=== PATIENT | male | born 1980 | race Caucasian/White ===

== ENCOUNTER 2020-05-02 17:02 | Emergency (ER) | payer BC, OTHER ==
--- NOTE | 2020-05-02 17:33 | ERPHSYRPT ---
- History of Present Illness Time Seen by Provider: 05/02/20 17:18 Source: patient Exam Limitations: no limitations Patient Subjective Stated Complaint: Headche Triage Nursing Assessment: Patient ambulated back to ED and transferred self to bed. Patient A+O X3. Patient's skin pink, warm and dry. Patient states he went to the dentist last week and had a fever and was put off of work. Patient states he needs a work note to go back to work. Patient states last week he was fatigued with headache. Patient denies anything going on now. Physician History: 40 years old fairly healthy male presented in the ER for work release note. Patient report he went to dentist 2 weeks ago and spiked a fever, he was put off work for 14 days. He also reports having occasional headaches, abdominal cramps but no vomiting. Denies any fever recently. Patient does not have COVID-19 testing done. Denies sore throat, chest pain palpitations, shortness of breath or cough. Denies any recent sick contact. Allergies/Adverse Reactions: No Known Drug Allergies Allergy (Verified 05/02/20 17:10) Home Medications: No Reportable Medications [No Reported Medications] 05/02/20 [History] Hx Tetanus, Diphtheria Vaccination/Date Given: Yes (7 years ago) Hx Influenza Vaccination/Date Given: No Hx Pneumococcal Vaccination/Date Given: No Immunizations Up to Date: Yes Travel Risk - International Travel Have you traveled outside of the country in past 3 weeks: No - Coronavirus Screening Are you exhibiting any of the following symptoms?: No Close contact with a COVID-19 positive Pt in past 14-21 Days: No - Review of Systems Constitutional: No Symptoms Eyes: No Symptoms Ears, Nose, & Throat: No Symptoms Respiratory: No Symptoms Cardiac: No Symptoms Abdominal/Gastrointestinal: No Symptoms Genitourinary Symptoms: No Symptoms Musculoskeletal: No Symptoms Skin: No Symptoms Neurological: No Symptoms Psychological: No Symptoms Endocrine: No Symptoms Hematologic/Lymphatic: No Symptoms Immunological/Allergic: No Symptoms - Past Medical History Pertinent Past Medical History: No - Past Surgical History Past Surgical History: No - Social History Smoking Status: Current every day smoker How long have you smoked: years Exposure to second hand smoke: No Drug Use: none Patient Lives Alone: No - Nursing Vital Signs Nursing Vital Signs: Initial Vital Signs Temperature 98.3 F 05/02/20 17:11 Pulse Rate 101 H 05/02/20 17:11 Respiratory Rate 18 05/02/20 17:11 Blood Pressure 132/76 05/02/20 17:11 O2 Sat by Pulse Oximetry 98 05/02/20 17:11 Pain Scale Pain Intensity 0 - Physical Exam General Appearance: no apparent distress, alert Eye Exam: PERRL/EOMI, eyes nml inspection Ears, Nose, Throat Exam: normal ENT inspection, TMs normal, pharynx normal Neck Exam: normal inspection, non-tender, supple, full range of motion Respiratory Exam: normal breath sounds, lungs clear Cardiovascular Exam: regular rate/rhythm, normal heart sounds Gastrointestinal/Abdomen Exam: soft, normal bowel sounds, No tenderness Back Exam: normal inspection, normal range of motion Extremity Exam: normal inspection, normal range of motion Neurologic Exam: alert, oriented x 3, cooperative, 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 He is afebrile here. Not in any distress. He still occasionally get headaches and abdominal cramping with fatigue symptoms. I believe he has a viral infection. Patient is advised that he probably needs COVID-19 testing negative before he can go back to work and cannot be released from the ER. I have offered him Covid 19 testing which he refused. 05/02/20 17:32 Counseled pt/family regarding: need for follow-up - Departure Departure Disposition: Home Clinical Impression: Viral syndrome Condition: Stable Critical Care Time: No Referrals: ROJELIO SMITH [Primary Care Provider] - Follow Up with PCP/3 days Instructions: Headache, Adult (DC), Viral Syndrome (DC) Additional Instructions: Take Tylenol as needed for fever, headache/body aches. Follow-up with primary care physician for reevaluation. Return to ER for any worsening.
[2020-05-02 17:42] VITALS: BP 122/80; PULSE 105; O2SAT 99
== END 2020-05-02 17:41 | disposition home or self-care (01) ==
LOC: ED 17:02
DX: B34.9 Viral infection, unspecified (principal)
CPT/HCPCS: 99283

== ENCOUNTER 2021-01-18 17:51 | Emergency (ER) | payer BC, MEDICAID ==
[2021-01-18] MEDS ORDERED: Sodium Chloride 0.9% 1000 ML 1,000 ML IV STA (18:06)
[2021-01-18] MEDS ORDERED: Sodium Chloride 0.9% 1000 ML 1,000 ML ONE (18:18)
[2021-01-18 18:48] LABS: ACETAMINOPHEN < 10 ug/ml (10-30); ALBUMIN 5.8 g/dL (3.5-5.0); ALKALINE PHOSPHATASE 106 U/L (38-126); ANION GAP 25.1 MEQ/L (5-15); BLOOD UREA NITROGEN 24 mg/dL (9-20); CHLORIDE 104 mmol/L (98-107); Calcium 11.2 mg/dL (8.4-10.2); Carbon Dioxide 21 mmol/L (22-30); Creatinine 1 1.68 mg/dL (0.66-1.25); EST GLOMERULAR FILTRATION RATE 48.6 ML/MIN; ETHYL ALCOHOL < 10 mg/dL (0-10); Glucose 137 mg/dL (74-106); Potassium 3.6 mmol/L (3.5-5.1); SALICYLATE < 1.0 mg/dL (2-20); SGOT/AST 38 U/L (17-59); SGPT/ALT 23 U/L (0-50); SODIUM 146 mmol/L (137-145); Total Protein 10.3 g/dL (6.3-8.2)
--- NOTE | 2021-01-18 18:49 | ERPHSYRPT ---
- History of Present Illness Source: patient, police Exam Limitations: clinical condition Patient Subjective Stated Complaint: pt brought in by a police, he was seen out in [place] walking around with a rifle, pt is a poor historian and states he is not going to tell me what is going on, Triage Nursing Assessment: pt walked in with cuffs on, pt is alert, wont answer questions he states he does not remember what happened, resp easy, skin w/d/p, face mask in place Hx Tetanus, Diphtheria Vaccination/Date Given: No Hx Influenza Vaccination/Date Given: No Hx Pneumococcal Vaccination/Date Given: No Immunizations Up to Date: No <NORA VIEIRA - Last Filed: 01/18/21 18:43> <VALERY WADE - Last Filed: 01/18/21 23:38> - History of Present Illness Time Seen by Provider: 01/18/21 18:00 Physician History: 40 years old is brought in the ER by PD after patient was wandering around with a rifle and a life of magazine. Patient reports he had some arguments with his parents which escalated everything. Reports "this happen all the time with parents". PT did not report patient making any suicidal or homicidal comments/threatening. Although PD report patient talking irrelevant things off and on. On my interview patient stays he does not know why he is here. History is limited. Patient is not in any distress. Patient does report he feels dehydrated as he is outsid all day long. (NORA VIEIRA) Allergies/Adverse Reactions: No Known Drug Allergies Allergy (Verified 05/02/20 17:10) Home Medications: No Reportable Medications [No Reported Medications] 05/02/20 [History] Travel Risk - International Travel Have you traveled outside of the country in past 3 weeks: No - Coronavirus Screening Are you exhibiting any of the following symptoms?: No Close contact with a COVID-19 positive Pt in past 14-21 Days: No - Vaccine Status Have you recieved a Covid-19 vaccination: No <NORA VIEIRA - Last Filed: 01/18/21 18:43> - Past Medical History Pertinent Past Medical History: No - Past Surgical History Past Surgical History: No - Social History Smoking Status: Unknown if ever smoked How long have you smoked: years Exposure to second hand smoke: No Drug Use: none Patient Lives Alone: No (unsure) <NORA VIEIRA - Last Filed: 01/18/21 18:43> - Review of Systems Constitutional: No Symptoms, Weakness Eyes: No Symptoms Ears, Nose, & Throat: No Symptoms Respiratory: No Symptoms Cardiac: No Symptoms Genitourinary Symptoms: No Symptoms Musculoskeletal: No Symptoms Skin: No Symptoms Neurological: No Symptoms Endocrine: No Symptoms <NORA VIEIRA - Last Filed: 01/18/21 18:43> - Physical Exam General Appearance: no apparent distress, alert, anxiety Eyes, Ears, Nose, Throat Exam: normal ENT inspection, pharynx normal Neck Exam: normal inspection, non-tender, supple, full range of motion Respiratory Exam: normal breath sounds, lungs clear Cardiovascular Exam: normal heart sounds, tachycardia Gastrointestinal/Abdominal Exam: soft, normal bowel sounds, No tenderness Extremities Exam: normal inspection, normal range of motion Current Suicidality: denies suicide plan Neurological Exam: alert, calm, 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 nml as tested, No normal mood/affect, No oriented x 3 Appearance: appropriate appearance, impaired insight, No appropriate insight Behavior/Eye Contact/Speech: alert & cooperative, avoids eye contact, refused to answer, decreased rate of speech Thoughts/Hallucinations: flight of ideas Skin Exam: normal color SpO2 Interpretation: normal SpO2: 96 O2 Delivery: Room Air <DEBBI VIEIRAR - Last Filed: 01/18/21 18:43> - Nursing Vital Signs Nursing Vital Signs: Initial Vital Signs Temperature 97.6 F 01/18/21 17:56 Pulse Rate 121 H 01/18/21 17:56 Respiratory Rate 18 01/18/21 17:56 Blood Pressure 134/99 01/18/21 17:56 O2 Sat by Pulse Oximetry 96 01/18/21 17:56 Pain Scale Pain Intensity 0 Ordered Tests: Active Orders 24 hr Category Date Time Status IV Insertion STAT Care 01/18/21 18:06 Active ACETAMINOPHEN Stat Lab 01/18/21 18:31 Completed CBC W DIFF Stat Lab 01/18/21 18:31 Completed CMP Stat Lab 01/18/21 18:31 Completed ETHYL ALCOHOL Stat Lab 01/18/21 18:31 Completed SALICYLATE Stat Lab 01/18/21 18:31 Completed UA W/RFX UR CULTURE Stat Lab 01/18/21 20:39 Completed Urine Triage Profile Stat Lab 01/18/21 20:39 Completed Medication Summary Discontinued Medications Generic Name Dose Route Start Last Admin Trade Name Alonzo PRN Reason Stop Dose Admin Sodium Chloride 1,000 mls @ 999 mls/hr 01/18/21 18:06 01/18/21 19:22 Sodium Chloride 0.9% 1000 Ml IV 01/18/21 19:06 Infused .Q1H1M STA Infusion Sodium Chloride Confirm 01/18/21 18:18 Sodium Chloride 0.9% 1000 Ml Administered 01/18/21 18:19 Dose 1,000 mls @ ud .ROUTE .STK-MED ONE Lab/Rad Data: Laboratory Result Diagrams 01/18/21 18:31 01/18/21 18:31 Laboratory Results 01/18/21 01/18/21 01/18/21 Range/Units 20:39 20:39 18:31 WBC (4.0-10.5) K/mm3 RBC (4.1-5.6) M/mm3 Hgb (12.5-18.0) gm/dl Hct (42-50) % MCV (78-100) fl MCH (26-32) pg MCHC (32-36) g/dl RDW (11.5-14.0) % Plt Count (150-450) K/mm3 MPV (7.5-11.0) fl Gran % (36.0-66.0) % Eos # (Auto) (0-0.5) Absolute Lymphs (auto) (1.0-4.6) Absolute Monos (auto) (0.0-1.3) Lymphocytes % (24.0-44.0) % Monocytes % (0.0-12.0) % Eosinophils % (0.00-5.0) % Basophils % (0.0-0.4) % Absolute Granulocytes (1.4-6.9) Basophils # (0-0.4) Sodium 146 H (137-145) mmol/L Potassium 3.6 (3.5-5.1) mmol/L Chloride 104 (98-107) mmol/L Carbon Dioxide 21 L (22-30) mmol/L Anion Gap 25.1 H (5-15) MEQ/L BUN 24 H (9-20) mg/dL Creatinine 1.68 H (0.66-1.25) mg/dL Estimated GFR 48.6 ML/MIN Glucose 137 H (74-106) mg/dL Calcium 11.2 H (8.4-10.2) mg/dL Total Bilirubin 1.10 (0.2-1.3) mg/dL AST 38 (17-59) U/L ALT 23 (0-50) U/L Alkaline Phosphatase 106 (38-126) U/L Serum Total Protein 10.3 H (6.3-8.2) g/dL Albumin 5.8 H (3.5-5.0) g/dL Urine Color YELLOW (YELLOW) Urine Appearance SLIGHTLY CLOUDY (CLEAR) Urine pH 5.0 (5-6) Ur Specific [place] 1.024 (1.005-1.025) Urine Protein 30 (Negative) Urine Ketones SMALL (NEGATIVE) Urine Blood NEGATIVE (0-5) [place]/ul Urine Nitrite NEGATIVE (NEGATIVE) Urine Bilirubin NEGATIVE (NEGATIVE) Urine Urobilinogen 2 (0-1) mg/dL Ur Leukocyte Esterase NEGATIVE (NEGATIVE) Urine WBC (Auto) 3-5 (0-5) /HPF Urine RBC (Auto) 0-2 (0-2) /HPF U Hyaline Cast (Auto) 26-50 (0-2) /LPF U Epithel Cells (Auto) NONE (FEW) /HPF Urine Bacteria (Auto) NONE SEEN (NEGATIVE) /HPF Urine Mucus (Auto) SLIGHT (NEGATIVE) /HPF Urine Culture Reflexed NO (NO) Urine Glucose NEGATIVE (NEGATIVE) mg/dL Salicylates < 1.0 L (2-20) mg/dL Urine Opiates Level NEGATIVE (NEGATIVE) Ur Methadone NEGATIVE (NEGATIVE) Acetaminophen < 10 L (10-30) ug/ml Urine Barbiturates NEGATIVE (NEGATIVE) Ur Phencyclidine (PCP) NEGATIVE (NEGATIVE) Urine Amphetamine POSITIVE (NEGATIVE) U Benzodiazepine Level NEGATIVE (NEGATIVE) Urine Cocaine NEGATIVE (NEGATIVE) Urine Marijuana (THC) NEGATIVE (NEGATIVE) Ethyl Alcohol < 10 (0-10) mg/dL 01/18/21 Range/Units 18:31 WBC 13.0 H (4.0-10.5) K/mm3 RBC 5.34 (4.1-5.6) M/mm3 Hgb 15.8 (12.5-18.0) gm/dl Hct 48.5 (42-50) % MCV 90.8 (78-100) fl MCH 29.6 (26-32) pg MCHC 32.6 (32-36) g/dl RDW 14.0 (11.5-14.0) % Plt Count 466 H (150-450) K/mm3 MPV 8.6 (7.5-11.0) fl Gran % 84.9 H (36.0-66.0) % Eos # (Auto) 0 (0-0.5) Absolute Lymphs (auto) 1.10 (1.0-4.6) Absolute Monos (auto) 0.83 (0.0-1.3) Lymphocytes % 8.5 L (24.0-44.0) % Monocytes % 6.4 (0.0-12.0) % Eosinophils % 0.0 (0.00-5.0) % Basophils % 0.2 (0.0-0.4) % Absolute Granulocytes 11.02 H (1.4-6.9) Basophils # 0.03 (0-0.4) Sodium (137-145) mmol/L Potassium (3.5-5.1) mmol/L Chloride (98-107) mmol/L Carbon Dioxide (22-30) mmol/L Anion Gap (5-15) MEQ/L BUN (9-20) mg/dL Creatinine (0.66-1.25) mg/dL Estimated GFR ML/MIN Glucose (74-106) mg/dL Calcium (8.4-10.2) mg/dL Total Bilirubin (0.2-1.3) mg/dL AST (17-59) U/L ALT (0-50) U/L Alkaline Phosphatase (38-126) U/L Serum Total Protein (6.3-8.2) g/dL Albumin (3.5-5.0) g/dL Urine Color (YELLOW) Urine Appearance (CLEAR) Urine pH (5-6) Ur Specific [place] (1.005-1.025) Urine Protein (Negative) Urine Ketones (NEGATIVE) Urine Blood (0-5) [place]/ul Urine Nitrite (NEGATIVE) Urine Bilirubin (NEGATIVE) Urine Urobilinogen (0-1) mg/dL Ur Leukocyte Esterase (NEGATIVE) Urine WBC (Auto) (0-5) /HPF Urine RBC (Auto) (0-2) /HPF U Hyaline Cast (Auto) (0-2) /LPF U Epithel Cells (Auto) (FEW) /HPF Urine Bacteria (Auto) (NEGATIVE) /HPF Urine Mucus (Auto) (NEGATIVE) /HPF Urine Culture Reflexed (NO) Urine Glucose (NEGATIVE) mg/dL Salicylates (2-20) mg/dL Urine Opiates Level (NEGATIVE) Ur Methadone (NEGATIVE) Acetaminophen (10-30) ug/ml Urine Barbiturates (NEGATIVE) Ur Phencyclidine (PCP) (NEGATIVE) Urine Amphetamine (NEGATIVE) U Benzodiazepine Level (NEGATIVE) Urine Cocaine (NEGATIVE) Urine Marijuana (THC) (NEGATIVE) Ethyl Alcohol (0-10) mg/dL <NORA VIEIRA - Last Filed: 01/18/21 18:43> - Progress Progress: unchanged Counseled pt/family regarding: lab results, diagnosis <VALERY WADE - Last Filed: 01/18/21 23:38> - Progress Progress Note: 01/18/21 18:50 Work-up is pending, care is transferred to Dr. Wade at shift change for reevaluation and final disposition. (NORA VIEIRA) 01/18/21 23:34 Janeth, the mental health nurse who performed the telepsych consultation staff to this patient's telepsych evaluation with her physician at [facility]. They feel that the patient needs inpatient therapy. They are requesting emergency jail since the patient is not willing to be admitted on his own. We have filled out the emergency jail paperwork and it will be signed by a dog show judge soon. (VALERY WADE) <NORA VIEIRA - Last Filed: 01/18/21 18:43> - Departure Departure Disposition: Transfer Critical Care Time: No <VALERY WADE - Last Filed: 01/18/21 23:38> - Departure Clinical Impression: Paranoid delusion, Disorganized thinking Condition: Stable Referrals: ROJELIO SMITH [Primary Care Provider] -
[2021-01-18 18:55] LABS: Absolute Neutrophil Ct (ANC) 11.02 (1.4-6.9); BASOPHIL % 0.2 % (0.0-0.4); Basophil (Absolute #) 0.03 (0-0.4); Eosinophil (Absolute #) 0 (0-0.5); Hematocrit 48.5 % (42-50); Hemoglobin 15.8 gm/dl (12.5-18.0); Lymphocytes % 8.5 % (24.0-44.0); Mean Cell Volume 90.8 fl (78-100); Mean Corpuscular Hemoglobin 29.6 pg (26-32); Mean Corpuscular Hgb Concent. 32.6 g/dl (32-36); Mean Platelet Volume 8.6 fl (7.5-11.0); Monocyte (Absolute #) 0.83 (0.0-1.3); Monocytes % 6.4 % (0.0-12.0); Neutrophil % 84.9 % (36.0-66.0); Platelet Count 466 K/mm3 (150-450); Red Blood Count 5.34 M/mm3 (4.1-5.6)
[2021-01-18 21:02] LABS: Appearance SLIGHTLY CLOUDY (CLEAR); Bilirubin NEGATIVE (NEGATIVE); Blood NEGATIVE Ery/ul (0-5); Glucose NEGATIVE (NEGATIVE); Hyaline Casts 26-50 /LPF (0-2); Ketones SMALL (NEGATIVE); Leukocyte Esterase NEGATIVE (NEGATIVE); Mucus SLIGHT /HPF (NEGATIVE); Nitrite NEGATIVE (NEGATIVE); Protein,Urine Dip 30 (Negative); RBC 0-2 /HPF (0-2); Specific Gravity 1.024 (1.005-1.025); Urobilinogen 2 mg/dL (0-1)
[2021-01-18 21:04] LABS: Bacteria NONE SEEN /HPF (NEGATIVE)
[2021-01-18 21:08] LABS: Barbiturate,Urine NEGATIVE (NEGATIVE); Benzodiazepine,Urine NEGATIVE (NEGATIVE); Cocaine,Urine NEGATIVE (NEGATIVE); Methadone,Urine NEGATIVE (NEGATIVE); Opiate,Urine NEGATIVE (NEGATIVE); PCP,Urine NEGATIVE (NEGATIVE); THC,Urine NEGATIVE (NEGATIVE)
[2021-01-18 21:32] LABS: Amphetamine,Urine POSITIVE (NEGATIVE)
[2021-01-18 23:31] VITALS: O2SAT 98
[2021-01-19 02:06] VITALS: BP 132/89; PULSE 88
== END 2021-01-19 01:50 | disposition short-term general hospital (02) ==
LOC: ED 17:51
DX: F22 Delusional disorders (principal); R41.89 Other symptoms and signs involving cognitive functions and awareness
CPT/HCPCS: 36000; 36415; 80053; 80307; 81001; 85025; 96360; 99285; G0480

== ENCOUNTER 2022-12-16 17:19 | Emergency (ER) | payer SELFPAY ==
[2022-12-16 17:29] VITALS: BP 121/82; PULSE 108; O2SAT 98
--- NOTE | 2022-12-16 18:29 | ERPHSYRPT ---
- History of Present Illness Time Seen by Provider: 12/16/22 18:22 Source: patient Exam Limitations: no limitations Patient Subjective Stated Complaint: Medical clearance Triage Nursing Assessment: Patient ambulated back to ED handcuffed in police custody. Patient A+O X 3. Patient's skin pink, warm and dry. Patient here for medical clearance. Police state patient's car was parked and he was out of his vehicle yelling and cursing at a highway construction crew. Patient denies pain or discomfort. Physician History: Patient is a 42-year-old male presents to our ED via PD for medical clearance. They report patient was in a vehicle which was parked in the middle of the road. Patient was yelling at a construction crews. Patient denies any discomfort. Patient denies pain. However patient unwilling to give me detailed information. Patient states "I want to say anything because I do not have my psychometrist with me". Patient feels well. Patient refuses blood draw. Patient voices no complaints or concerns at this time. Portions of this note were created with voice recognition technology. There may be grammatical, spelling, punctuation or sound alike errors Timing/Duration: today Severity: mild Modifying Factors: Improves With: nothing Associated Symptoms: denies symptoms Allergies/Adverse Reactions: No Known Drug Allergies Allergy (Verified 12/16/22 17:21) Home Medications: No Reportable Medications [No Reported Medications] 05/02/20 [History] Hx Tetanus, Diphtheria Vaccination/Date Given: No Hx Influenza Vaccination/Date Given: No Hx Pneumococcal Vaccination/Date Given: No Immunizations Up to Date: Yes Travel Risk - International Travel Have you traveled outside of the country in past 3 weeks: No - Coronavirus Screening Are you exhibiting any of the following symptoms?: No Close contact with a COVID-19 positive Pt in past 14-21 Days: No - Vaccine Status Have you recieved a Covid-19 vaccination: No - Review of Systems Constitutional: No Symptoms, No Fever, No Chills Eyes: No Symptoms Ears, Nose, & Throat: No Symptoms Respiratory: No Symptoms, No Cough, No Dyspnea Cardiac: No Symptoms, No Chest Pain, No Edema, No Syncope Abdominal/Gastrointestinal: No Symptoms, No Abdominal Pain, No Nausea, No Vomiting, No Diarrhea Genitourinary Symptoms: No Symptoms, No Dysuria Musculoskeletal: No Symptoms, No Back Pain, No Neck Pain Skin: No Symptoms, No Rash Neurological: No Symptoms, No Dizziness, No Focal Weakness, No Sensory Changes Psychological: No Symptoms Endocrine: No Symptoms Hematologic/Lymphatic: No Symptoms Immunological/Allergic: No Symptoms All Other Systems: Reviewed and Negative - Past Medical History Pertinent Past Medical History: No - Past Surgical History Past Surgical History: No - Social History Smoking Status: Unknown if ever smoked How long have you smoked: years Exposure to second hand smoke: No Drug Use: none Patient Lives Alone: No (unsure) - Nursing Vital Signs Nursing Vital Signs: Initial Vital Signs Temperature 98.5 F 12/16/22 17:22 Pulse Rate 108 H 12/16/22 17:22 Respiratory Rate 18 12/16/22 17:22 Blood Pressure 121/82 12/16/22 17:22 O2 Sat by Pulse Oximetry 98 12/16/22 17:22 Pain Scale Pain Intensity 0 - Physical Exam General Appearance: no apparent distress, alert Eye Exam: PERRL/EOMI, eyes nml inspection Ears, Nose, Throat Exam: normal ENT inspection, TMs normal, pharynx normal, mo ist mucous membranes Neck Exam: normal inspection, non-tender, supple, full range of motion Respiratory Exam: normal breath sounds, lungs clear, airway intact, No respiratory distress Cardiovascular Exam: regular rate/rhythm, normal heart sounds, normal peripheral pulses Gastrointestinal/Abdomen Exam: soft, normal bowel sounds, No tenderness, No mass Back Exam: normal inspection, normal range of motion, No CVA tenderness, No vertebral tenderness Extremity Exam: normal inspection, normal range of motion, pelvis stable Neurologic Exam: alert, oriented x 3, cooperative, normal mood/affect, sensation nml, No motor deficits Skin Exam: normal color, warm, dry, No rash Lymphatic Exam: No adenopathy SpO2 Interpretation: normal SpO2: 98 O2 Delivery: Room Air - Course Nursing assessment & vital signs reviewed: Yes - Progress Progress: improved Progress Note: Patient is a 42-year-old male presents to our ED for medical clearance by PD. Patient has no complaints. History and physical exam limited. Patient unwilling to answer questions regarding why he is here. Patient states he is not in any discomfort. Physical exam essentially nonremarkable. Patient cooperative. There is an odor emanating from patient's breath which resembles alcohol. Complexity of problem addressed is low acute uncomplicated No critical care time Complex of data reviewed and analyzed is none. No specialized testing ordered. Diagnosis is made based on limited history and physical exam. Risk of complication and or risk morbidity/mortality of patient management is minimal. Will discharge to police custody. Vital stable. Mild tachycardia Patient to follow-up with his primary care doctor once released from [facility]. Vital stable Portions of this note were created with voice recognition technology. There may be grammatical, spelling, punctuation or sound alike errors 12/16/22 18:25 Blood glucose is 106 12/16/22 18:29 Counseled pt/family regarding: diagnosis, need for follow-up - Departure Departure Disposition: Home Clinical Impression: Medical clearance for incarceration Condition: Stable Critical Care Time: No Referrals: DOCTOR,NO FAMILY [Primary Care Provider] - Follow up/PCP as directed STONE LEARY MD [ACTIVE STAFF] - Follow up/PCP as directed Additional Instructions: Discharge/Care Plan NATHALIA ZARCO JESSIE was seen on 12/16/22 in the Emergency Room. The patient was counseled regarding Diagnosis,Lab results, Imaging studies, need for follow up and when to return to the Emergency Room. Prescriptions given: Discharge Note I have spoken with the patient and/or caregivers. I have explained the patient's condition, diagnosis and treatment plan based on the information available to me at this time. I have answered the patient's and/or caregiver's questions and addressed any concerns. The patient and/or caregivers have as good understanding of the patient's diagnosis, condition and treatment plan as can be expected at this point. The vital signs have been stable. The patient's condition is stable and appropriate for discharge from the emergency department. The patient will pursue further outpatient evaluation with the primary care physician or other designated or consulting physician as outlined in the discharge instructions. The patient and/or caregivers are agreeable to this plan of care and follow-up instructions have been explained in detail. The patient and/or caregivers have received these instruction. The patient/and or caregivers are aware that any significant change in condition or worsening of symptoms should prompt an immediate return to this or the closest emergency department or call 911.
== END 2022-12-16 18:33 ==
LOC: ED 17:19
DX: Z02.89 Encounter for other administrative examinations (principal)
CPT/HCPCS: 82947; 99281